=== PATIENT | female | born 1990 | race Caucasian/White ===

== ENCOUNTER 2018-04-25 17:40 | Observation (INO) ==
--- NOTE | 2018-04-25 18:25 | Emergency Department Note ---
Disposition Clinical Impression: Hypocalcemia Disposition: Admitted As Inpatient Condition: Fair Recheck wound or abnormal lab - General Chief Complaint: ED Recheck/Abnormal Lab/Rx Stated Complaint: low calcium Time Seen by Provider: 04/25/18 17:47 Nursing Notes Reviewed: Yes Vital Signs Reviewed: Yes - History of Present Illness HPI Narrative: Ms. Nolen, 27-year-old female, presents from home for evaluation of what she suspects is hypocalcemia. Patient has a history of complete thyroidectomy with a parathyroid autotransplant. She has been admitted for hypocalcemia previously and this feels very similar. She follows with [facility] , Dr. Castellano; last appointment with him is Monday. She notes that is, on Monday , she had Chvostek sign. In the last hour prior to arrival, she began having Trusseau sign sign at rest of her bilateral hands. Patient notes she should be on calcitriol. She self-discontinued approximately 6 months ago due to the high cost of the medication. ROS: Positive: As above Negative: Fever, chills, nausea, vomiting, chest pain, palpitations, dyspnea, diaphoresis, abdominal pain, diarrhea, constipation - Related Data Home Medications Medication Instructions Recorded Confirmed Levonorgestrel [Mirena] 52 mg IU ONCE 09/24/15 04/25/18 Levothyroxine [Synthroid] 150 mcg PO DAILY 07/03/16 04/25/18 Allergies Allergy/AdvReac Type Severity Reaction Status Date / Time No Known Allergies Allergy Verified 04/25/18 20:40 All systems ED: reviewed and negative except as stated. Review of Systems: As Per HPI Past Medical History - Past Medical History Medical history: Reports: non-contributory, cancer, thyroid disease Surgical history: Reports: cholecystectomy, other (Thyroid resection) Psychiatric history: Reports: anxiety, depression, other AFTER SCHOOL CAREGIVER history: Reports: no AFTER SCHOOL CAREGIVER history - Social History Smoking Status: Never smoker Smokeless Tobacco Status: No Alcohol use: Reports: none Drug use: Reports: none Physical Exam Vital Signs Reviewed General: Patient is alert, oriented, and in mild distress from her Trousseau sign. Head: atraumatic, normocephalic Eye: normal appearance, PERRL, EOMI, no scleral icterus, no conjunctival injection ENT: mucous membranes moist, normal external ear exam Neck: normal inspection, trachea midline, full ROM Chest: normal inspection, symmetric chest rise Respiratory: Good respiratory effort. Bilateral breath sounds are clear without wheezing, crackles, or rhonchi. Cardiovascular: Regular rate and rhythm. No clicks, rubs, gallops, or murmors. Normal heart sounds. Abdomen: Bowel sounds present normoactive x-4 quadrants. Abdomen is soft, nondistended, and nontender. No guarding or rebound. No organomegaly noted. Musculoskeletal: Spontaneously moving all extremities. Strength 5/5 and equal in upper and lower extremities. Skin: warm, dry, intact. Neuro: Alert and oriented x4. Sensation light touch intact. (+) Chvostek. (+) Trousseau without compression of BP cuff. Psych: Patient's affect is appropriate for situation. Course Course Narrative: Patient is pleasant and cooperative. Chart check shows history of admission for hypocalcemia; she had Chvostek and Trousseau at that time as well. EKG dated 04/25/18 at 18:14 interpreted as sinus rhythm with a rate of 94. OK 138, QRS 106, QTC 439. Normal axis. Nonspecific ST-T changes. Compared to previous dated 07/02/16 showing no acute ischemic changes or comparison. Patient was given 1 amp calcium gluconate and 100 mL of normal saline given over 20-30 minutes. Her symptoms did improve but did not resolve; she had tremors and slight Trousseau sign. I attempted multiple times to speak with her welder journeyman at [facility] without success. I discussed in detail the appropriate treatment for such severe symptomatic hypocalcemia which necessitates multiple calcium checks and likely multiple calcium infusions. Hesitantly, she agrees to admission for continued evaluation and management. I discussed with the patient the seriousness of her symptoms in the cause very likely directly related to her noncompliance of her calcium supplement. Or minor if this is happened previously for very similar reasons. She appears to understand the causality. I believe that, patient was able to be supplemented with a financially cheaper calcium supplement she would very likely be compliant. I discussed the patient with the admitting hospitalist, Dr. Owens, who agrees to accept the patient for continued evaluation and management of symptomatically hypocalcemia. He requests IV magnesium at this time which I will provide emergency department. Vital Signs Temperature 98.2 F 04/25/18 17:42 Pulse Rate 95 04/25/18 17:42 Respiratory Rate 16 04/25/18 17:42 Blood Pressure 145/89 04/25/18 17:42 O2 Sat by Pulse Oximetry 99 04/25/18 17:42 Temperature 98.2 F 04/25/18 17:42 Pulse Rate 82 04/25/18 21:13 Respiratory Rate 16 04/25/18 22:29 Blood Pressure 118/75 04/25/18 22:29 O2 Sat by Pulse Oximetry 99 04/25/18 21:13 Oxygen Delivery Oxygen Delivery Room Air Recheck wound or abnormal lab - Lab Data Result diagrams: 04/25/18 18:14 04/25/18 18:14 Lab Results 04/25/18 04/25/18 04/25/18 Range/Units 18:14 18:14 18:28 WBC 7.8 (4.3-11.1) K/mcL RBC 4.24 (3.82-4.97) M/mcL Hgb 12.9 (11.5-15.4) g/dL Hct 38.2 (35.3-44.9) % MCV 90.1 (83.0-100.0) fL MCH 30.4 (28.0-33.3) pg MCHC 33.8 (31.6-35.5) g/dL RDW 12.7 (11.5-14.5) % Plt Count 300 (140-400) K/mcL MPV 8.7 L (9.4-12.4) fL Immature Gran % 0.3 (0-4) % Seg Neutrophils % 64.5 % Lymphocytes % 25.9 % Monocytes % 7.0 % Eosinophils % 1.8 % Basophils % 0.5 % Neutrophils # 5.0 (1.6-8.9) K/mcL Lymphocytes # 2.0 (0.6-4.6) K/mcL Monocytes # 0.6 (0.0-1.3) K/mcL Eosinophils # 0.1 (0.0-0.6) K/mcL Basophils # 0.0 (0.0-0.2) K/mcL Sodium 140 (136-145) mEq/L Potassium 3.5 (3.5-5.1) mEq/L Chloride 103 (98-107) mEq/L Carbon Dioxide 25 (23-29) mEq/L BUN 9 (6-20) mg/dL Creatinine 0.85 (0.60-1.20) mg/dL Est GFR ( Amer) > 60 (> 60) Est GFR (Non-Af Amer) > 60 (> 60) BUN/Creatinine Ratio 11 (6-26) Glucose 115 H (70-105) mg/dL Calculated Osmolality 290 (280-300) Calcium 7.0 L (8.6-10.3) mg/dL Venous Ioniz Calcium 0.81 L (1.15-1.35) mmol/L Phosphorus 4.0 (2.7-4.5) mg/dL Magnesium 1.7 (1.6-2.6) mg/dL TSH 7.760 H (0.340-5.600) mcIU/mL
[2018-04-25 18:29] LABS: Basophils % 0.5 %; Eosinophils # 0.1 K/mcL (0.0-0.6); Eosinophils % 1.8 %; Hematocrit 38.2 % (35.3-44.9); Hemoglobin 12.9 g/dL (11.5-15.4); Immature Granulocytes % 0.3 % (0-4); Lymphocytes % 25.9 %; Mean Corpuscular HGB Conc 33.8 g/dL (31.6-35.5); Mean Corpuscular Hemoglobin 30.4 pg (28.0-33.3); Mean Corpuscular Volume 90.1 fL (83.0-100.0); Mean Platelet Volume 8.7 fL (9.4-12.4); Monocytes # 0.6 K/mcL (0.0-1.3); Platelet Count 300 K/mcL (140-400); Red Blood Count 4.24 M/mcL (3.82-4.97); Red Cell Distribution Width 12.7 % (11.5-14.5); Segmented Neutrophils % 64.5 %
[2018-04-25 18:30] LABS: VBG Ionized Calcium 0.81 mmol/L (1.15-1.35)
[2018-04-25 18:53] LABS: BUN/Creatinine Ratio 11 (6-26); Blood Urea Nitrogen 9 mg/dL (6-20); Carbon Dioxide 25 mEq/L (23-29); Chloride 103 mEq/L (98-107); Glucose 115 mg/dL (70-105); Magnesium 1.7 mg/dL (1.6-2.6); Osmolality,Calculated 290 (280-300); Potassium 3.5 mEq/L (3.5-5.1); Sodium 140 mEq/L (136-145); eGFR For African Americans > 60 (> 60); eGFR For Non-African Americans > 60 (> 60)
--- NOTE | 2018-04-25 21:26 | Emergency Department Note ---
Disposition Clinical Impression: Hypocalcemia Disposition: Admitted As Inpatient Condition: Fair General Adult HPI - General Chief complaint: ED Recheck/Abnormal Lab/Rx Stated complaint: low calcium Time Seen by Provider: 04/25/18 17:47 - History of Present Illness Pain Scale: 0 - Related Data Home Medications Medication Instructions Recorded Confirmed Levonorgestrel [Mirena] 52 mg IU ONCE 09/24/15 04/25/18 Levothyroxine [Synthroid] 150 mcg PO DAILY 07/03/16 04/25/18 Previous Rx's Medication Instructions Recorded Calcitriol [Rocaltrol] 0.25 mcg PO BID 30 Days #60 capsule 04/26/18 Allergies Allergy/AdvReac Type Severity Reaction Status Date / Time No Known Allergies Allergy Verified 04/25/18 20:40 Past Medical History - Past Medical History Medical history: Reports: non-contributory, cancer, thyroid disease Surgical history: Reports: cholecystectomy, other (Thyroid resection) Psychiatric history: Reports: anxiety, depression, other HEAD AUTOMATIC SAWYER history: Reports: no HEAD AUTOMATIC SAWYER history - Social History Smoking Status: Never smoker Smokeless Tobacco Status: No Alcohol use: Reports: none Drug use: Reports: none Course Vital Signs Temperature 98.2 F 04/25/18 17:42 Pulse Rate 95 04/25/18 17:42 Respiratory Rate 16 04/25/18 17:42 Blood Pressure 145/89 04/25/18 17:42 O2 Sat by Pulse Oximetry 99 04/25/18 17:42 Temperature 99.6 F 04/26/18 11:30 Pulse Rate 69 04/26/18 11:30 Respiratory Rate 18 04/26/18 11:30 Blood Pressure 109/72 04/26/18 11:30 O2 Sat by Pulse Oximetry 98 04/26/18 11:30 Oxygen Delivery Oxygen Delivery Room Air Medical Decision Making - Lab Data Result diagrams: 04/25/18 18:14 04/26/18 03:01 Lab Results 04/25/18 04/25/18 04/25/18 Range/Units 18:14 18:14 18:28 WBC 7.8 (4.3-11.1) K/mcL RBC 4.24 (3.82-4.97) M/mcL Hgb 12.9 (11.5-15.4) g/dL Hct 38.2 (35.3-44.9) % MCV 90.1 (83.0-100.0) fL MCH 30.4 (28.0-33.3) pg MCHC 33.8 (31.6-35.5) g/dL RDW 12.7 (11.5-14.5) % Plt Count 300 (140-400) K/mcL MPV 8.7 L (9.4-12.4) fL Immature Gran % 0.3 (0-4) % Seg Neutrophils % 64.5 % Lymphocytes % 25.9 % Monocytes % 7.0 % Eosinophils % 1.8 % Basophils % 0.5 % Neutrophils # 5.0 (1.6-8.9) K/mcL Lymphocytes # 2.0 (0.6-4.6) K/mcL Monocytes # 0.6 (0.0-1.3) K/mcL Eosinophils # 0.1 (0.0-0.6) K/mcL Basophils # 0.0 (0.0-0.2) K/mcL Sodium 140 (136-145) mEq/L Potassium 3.5 (3.5-5.1) mEq/L Chloride 103 (98-107) mEq/L Carbon Dioxide 25 (23-29) mEq/L BUN 9 (6-20) mg/dL Creatinine 0.85 (0.60-1.20) mg/dL Est GFR ( Amer) > 60 (> 60) Est GFR (Non-Af Amer) > 60 (> 60) BUN/Creatinine Ratio 11 (6-26) Glucose 115 H (70-105) mg/dL Calculated Osmolality 290 (280-300) Calcium 7.0 L (8.6-10.3) mg/dL Venous Ioniz Calcium 0.81 L (1.15-1.35) mmol/L Phosphorus 4.0 (2.7-4.5) mg/dL Magnesium 1.7 (1.6-2.6) mg/dL TSH 7.760 H (0.340-5.600) mcIU/mL Attestation Statement - Attestation Attestation: I examined this patient and my medical decision-making was reviewed with the Resident Physician, Dr. Rosenberg. I agree with the documented findings, disposition and treatment plan as described except to the extent set forth below. 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 Patient is supposed to be on calcium supplementation as an outpatient but she states that she has been noncompliant secondary to the high cost of the medicine. Patient reports she supposed to take calcitriol at home and she is been off that her some time. Patient had a regular 6 month lab check by her hose tender week ago in was told that her calcium was running very low. Patient since that time has developed some symptoms of hypocalcemia including jaw claudication carpopedal spasm. Patient came in for evaluation of low calcium. I agree with patient's physical exam findings as documented. Vital signs are stable she is in no acute distress. Patient with low calcium on labs. Patient was given IV calcium gluconate and 2 g magnesium replacement. Patient be admitted to the hospitalist service for further evaluation and management she remains hemodynamically stable at this time.
[2018-04-25] MEDS ORDERED: Naloxone 0.4 MG/ML INJ IVP PRN (21:48)
[2018-04-25] MEDS ORDERED: Acetaminophen 325 MG TABLET PO PRN (21:48)
--- NOTE | 2018-04-25 22:20 | Internal Med History&Physical ---
Date of Encounter: 04/25/18 Time of Encounter: 21:05 Internal Medicine - H&P: HPI Chief complaint: low calcium Admitted From: Emergency Dept Plans for Post Hospital Care: Home History of present illness: Ms. Nolen is a 27 year old female who presents to the ER tonight with low calcium and symptoms suggestive of low calcium. She started experiencing some tingling in her hands and contractures in her hands as well as a positive Chvostek sign in her jaw. She has a history of total thyroidectomy and parathyroid reimplantation. However, her parathyroid glands have failed. She follows with an armature winder helper repair in [place], [place]. She has been off of her calcitriol for about a year now and has not taken it due to excessive cost and lack of adequate insurance coverage. She has been taking calcium carbonate and drinking milk as recommended by her armature winder helper repair and has been able to maintain her calcium relatively steadily for the last several months. However, she has developed some hypocalcemia at certain times of her life, especially when she is having some emotional duress. She noted some increased symptoms the last 24 hours and therefore came to ER for evaluation where she was noted to be hypocalcemic. She was given some calcium gluconate IV in the ER and was admitted to hospitalist service. I asked the ER to give her a dose of magnesium sulfate IV as well. Upon my assessment of the patient in the ER, she is having some mild contractures of her hands, especially with a blood pressure cuff in her right arm. She also has a positive Chvostek sign in her jaw. She denies any fevers, cough, chills, nausea, vomiting, diarrhea, shortness of breath, or chest pain. She admits to noncompliance with calcitriol and states that she is unable to afford the medication. She does take her Synthroid replacement religiously, however. She states her armature winder helper repair is aware that she does not take calcitriol and that she takes calcium carbonate 1000 mg 4 times daily with milk and that usually helps regulate her calcium levels steadily. Past Med Surg Social Fam HX - Past Medical History Attestation: Yes The following information was validated with the patient. Source: patient, old records reviewed Medical history: cancer (thyroid), thyroid disease Additional medical history: thyroidectomy Psychiatric history: anxiety, depression - Past Surgical History Surgical History: cholecystectomy, other (Thyroid resection) Additional surgical history: thyroidectomy Oct 2015 - Social History Smoking Status: Never smoker Smokeless Tobacco Status: No Alcohol use: none Drug use: none Current living situation: Home, With Family Activity Level: Independent ambulation Recent Out of Country Travel Within the Last 8 Weeks: No - Family History Mother Living Status: Still Living Hx Family Cardiac Disorders: Yes (orthostatic hypotensive) Father Living Status: Still Living Hx Family GI Disorders: Yes (pre cancerous) Internal Medicine - H&P: Meds Levonorgestrel [Mirena] 52 mg IU ONCE 09/24/15 [History] Levothyroxine [Synthroid] 150 mcg PO DAILY 07/03/16 [History] 3 Allergy/AdvReac Type Severity Reaction Status Date / Time No Known Allergies Allergy Verified 04/25/18 20:40 - Constitutional Constitutional: no chills, no fever(s), no night sweats, no weakness - EENT Eyes: no blurry vision, no change in vision Ears: no tinnitus Nose, mouth and throat: no nasal congestion, no sore throat - Cardiovascular Cardiovascular ROS IM: no chest pain, no dyspnea, no irregular heart rhythm, no lightheadedness, no palpitations, no syncope - Respiratory Respiratory: no cough, no dyspnea - Gastrointestinal Gastrointestinal: no abdominal pain, no constipation, no diarrhea, no nausea, no vomiting - Genitourinary Genitourinary: no dysuria, no flank pain, no hematuria - Musculoskeletal Musculoskeletal ROS IM: no arthralgias, no back pain - Integumentary Integumentary IM: no rash - Neurological Neurological ROS: tingling, no focal weakness, no frequent falls, no headache(s) - Psychiatric Psychiatric: no anxiety, no depression - Endocrine Endocrine IM: no polydipsia, no polyuria - Allergic/Immunologic Allergic/Immunologic: no wheezing - Constitutional Vitals: Temp Pulse Resp BP Pulse Ox 98.2 F 82 18 135/78 99 04/25/18 17:42 04/25/18 21:13 04/25/18 21:13 04/25/18 21:13 04/25/18 21:13 General appearance: Present: cooperative, A&O X 3, pleasant, no acute distress, answers questions appropriately - Head Head exam: Present: atraumatic, normal inspection - Eye Eye exam: Present: EOMI, normal appearance, PERRL. Absent: scleral icterus Pupils: Present: normal accommodation - ENT ENT exam: Present: mucous membranes dry, normal exam, normal oropharynx - Neck Neck exam general surgery: Present: full ROM, supple. Absent: lymphadenopathy, tenderness, nuchal rigidity, thyromegaly Additional comments: healed thyroid surgical scar - Respiratory Respiratory exam: Present: CTAB. Absent: chest wall tenderness, rales, respiratory distress, rhonchi, wheezes - Cardiovascular Cardiovascular exam: Present: RRR, +S1, +S2. Absent: diastolic murmur, systolic murmur - GI/Abdominal GI/Abdominal exam: Present: normal bowel sounds, soft. Absent: hepatomegaly, mass, splenomegaly, tenderness - Extremities Exam Extremities exam: Present: full ROM, normal capillary refill, warm, radial pulses palpable and symmetrical. Absent: calf tenderness - Back Exam Back exam: Present: normal inspection. Absent: CVA tenderness (L), CVA tenderness (R) - Neurological Exam Neurological exam: Present: alert, CN II-XII intact, oriented X3 Additional comments: + Chvostek sign; tingling in her fingers - Psychiatric Psychiatric exam: Present: normal affect, normal mood - Skin Skin exam: Absent: rash Internal Med - H&P Results - Labs CBC & Chem 7: 04/25/18 18:14 04/25/18 18:14 Labs: Short CBC 04/25/18 Range/Units 18:14 WBC 7.8 (4.3-11.1) K/mcL Hgb 12.9 (11.5-15.4) g/dL Hct 38.2 (35.3-44.9) % Plt Count 300 (140-400) K/mcL Neutrophils # 5.0 (1.6-8.9) K/mcL BMP 04/25/18 18:14 Sodium 140 Potassium 3.5 Chloride 103 Carbon Dioxide 25 BUN 9 Creatinine 0.85 Glucose 115 H Calcium 7.0 L - EKG Data -: EKG Interpreted by Myself EKG shows normal: sinus rhythm Rate: normal - EKG Data Prior EKG available for review: no - Assessment and plan (1) Hypocalcemia Current Visit: Yes Status: Acute Assessment and plan: 1. Will treat with oral calcium as per home dosing after she received IV calcium and Magnesium in ER. 2. Will monitor ionized calcium levels and BMP Q4H until stabilized. 3. Will repeat magnesium level in the morning. 4. Discussed with patient on the need to follow closely with her armature winder helper repair and consider resuming Calcitriol at his discretion. (2) Hypothyroid Current Visit: Yes Status: Chronic Assessment and plan: 1. Resume home dose of Synthroid. 2. Will check Free T4 level with next lab draw. Qualifiers: Hypothyroidism type: postoperative Qualified Code(s): E89.0 - Postprocedural hypothyroidism (3) DVT prophylaxis Current Visit: Yes Status: Acute Assessment and plan: 1. Heparin SQ.
[2018-04-25 23:40] LABS: BUN/Creatinine Ratio 12 (6-26); Blood Urea Nitrogen 10 mg/dL (6-20); Calcium 7.4 mg/dL (8.6-10.3); Carbon Dioxide 26 mEq/L (23-29); Chloride 103 mEq/L (98-107); Glucose 106 mg/dL (70-105); Osmolality,Calculated 289 (280-300); Potassium 3.6 mEq/L (3.5-5.1); Sodium 140 mEq/L (136-145); eGFR For African Americans > 60 (> 60); eGFR For Non-African Americans > 60 (> 60)
[2018-04-26 03:43] LABS: BUN/Creatinine Ratio 16 (6-26); Blood Urea Nitrogen 12 mg/dL (6-20); Calcium 7.2 mg/dL (8.6-10.3); Carbon Dioxide 27 mEq/L (23-29); Chloride 104 mEq/L (98-107); Glucose 101 mg/dL (70-105); Osmolality,Calculated 288 (280-300); Potassium 3.4 mEq/L (3.5-5.1); Sodium 139 mEq/L (136-145); eGFR For African Americans > 60 (> 60); eGFR For Non-African Americans > 60 (> 60)
[2018-04-26 03:46] LABS: Alanine Aminotransferase 16 Units/L (7-52); Albumin/Globulin Ratio 1.3 (1.1-2.2); Alkaline Phosphatase 94 Units/L (34-104); Aspartate Amino Transferase 14 Units/L (13-39); BUN/Creatinine Ratio 14 (6-26); Bilirubin,Total 0.4 mg/dL (0.3-1.0); Blood Urea Nitrogen 11 mg/dL (6-20); Calcium 7.1 mg/dL (8.6-10.3); Carbon Dioxide 26 mEq/L (23-29); Chloride 101 mEq/L (98-107); Globulin 3.1 g/dL (2.4-3.5); Glucose 102 mg/dL (70-105); Magnesium 2.2 mg/dL (1.6-2.6); Osmolality,Calculated 296 (280-300); Phosphorous 4.5 mg/dL (2.7-4.5); Potassium 3.5 mEq/L (3.5-5.1); Sodium 143 mEq/L (136-145); Total Protein 7.1 g/dL (6.4-8.9); eGFR For African Americans > 60 (> 60); eGFR For Non-African Americans > 60 (> 60)
--- NOTE | 2018-04-26 08:33 | Internal Med Progress Note ---
Date of Encounter: 04/26/18 Time of Encounter: 08:30 - Assessment and plan (1) Hypocalcemia Current Visit: Yes Status: Acute Assessment and plan: Presents with s/sx of hypocalcemia Presented with positive Chvostek's sign, contractures of bilateral hands, numbness/tingling, and tetany symptoms are improving. Patient reports that she is only experiencing mild numbness/tingling in face. No longer having contractures, or tetany Has received 1 g IV calcium and is currently on 4 times a day calcium carbonate Patient was previously taking Calcitrol reports that due to insurance issues she is unable to afford it any longer; vice president sales aware and following Repeat labs continue to show hypocalcemia with a calcium of 7.1 and ionized calcium of 0.90 Serum Mg 2.2 and Phos 4.5 -Give 1gm IV calcium now -Goal serum calcium 8-8.5 -Check vitamin D;replace as necessary - Discussed with patient on the need to follow closely with her vice president sales and consider resuming Calcitriol at his discretion. (2) Hypothyroid Current Visit: Yes Status: Chronic Assessment and plan: Iatrogenic hypothyroidism 2/2 thyroid and parathyroid removal with cancer treatment Failed parathyroid reimplantation TSH and free T4 show subtherapeutic hypothyroidism Follows with endocrinology in [facility]; medication adjustments to be made by endocrinology f/u Continue current synthroid dose Qualifiers: Hypothyroidism type: postoperative Qualified Code(s): E89.0 - Postprocedural hypothyroidism (3) DVT prophylaxis Current Visit: Yes Status: Acute Assessment and plan: SQ heparin - Time Spent With Patient Total time spent is greater than 50% in coordination of care (as documented) at patient's floor/unit and/or counseling patient: 25 - 35 minutes - Subjective Interval history: Patient seen and examined at the bedside today. No acute changes overnight. Denies any contractures, cramps, extremity numbness and tingling. Continues to endorse mild facial numbness/tingling. - Constitutional Vitals: Temp Pulse Resp BP Pulse Ox 99.1 F 72 18 105/67 97 04/26/18 07:41 04/26/18 07:41 04/26/18 07:41 04/26/18 07:41 04/26/18 07:41 General appearance: Present: cooperative, A&O X 3, pleasant, no acute distress, answers questions appropriately - Head Head exam: Present: atraumatic, normocephalic - Eye Eye exam: Present: PERRL, conjuntiva pink, sclera anicteric Pupils: Present: PERRL - Neck Neck exam general surgery: Present: supple, trachea midline. Absent: lymphadenopathy - Respiratory Respiratory exam: Present: CTAB. Absent: accessory muscle use, rales, rhonchi, wheezes - Cardiovascular Cardiovascular exam: Present: RRR, +S1, +S2. Absent: diastolic murmur, gallop, rubs, systolic murmur - GI/Abdominal GI/Abdominal exam: Present: normal bowel sounds, soft, no peritoneal signs. Absent: distended, tenderness - Extremities Exam Extremities exam: Present: warm, radial pulses palpable and symmetrical. Absent : calf tenderness, cyanotic, pedal edema - Neurological Exam Neurological exam: Present: CN II-XII intact, oriented X3, no focal deficits. Absent: pronater drift, facial droop, speech deficit Additional comments: Negative for tetany and negative for hyperreflexia. No Chvosteks signs - Skin Skin exam: Present: dry, intact Internal Medicine: Result - Labs CBC & Chem 7: 04/25/18 18:14 04/26/18 03:01 Labs: BMP 04/25/18 04/26/18 04/26/18 23:03 03:01 03:01 Sodium 140 139 143 Potassium 3.6 3.4 L 3.5 Chloride 103 104 101 Carbon Dioxide 26 27 26 BUN 10 12 11 Creatinine 0.81 0.77 0.76 Glucose 106 H 101 102 Calcium 7.4 L 7.2 L 7.1 L Liver Function 04/26/18 Range/Units 03:01 Total Bilirubin 0.4 (0.3-1.0) mg/dL AST 14 (13-39) Units/L ALT 16 (7-52) Units/L Alkaline Phosphatase 94 (34-104) Units/L Albumin 4.0 (3.5-5.7) g/dL Consult Discharge Plan - Plan Referrals: Tara Wyatt, CHRISTO [Primary Care Provider] -
[2018-04-26] MEDS ORDERED: *HR* Heparin 5,000 UNIT/ML VIAL SQ SCH (09:00)
[2018-04-26] MEDS ORDERED: Cholecalciferol (D-3) 1,000 UNIT TABLET PO SCH (09:00)
[2018-04-26 10:56] LABS: VBG Ionized Calcium 0.92 mmol/L (1.15-1.35)
[2018-04-26 11:31] VITALS: BP 109/72
--- NOTE | 2018-04-26 13:31 | Discharge Summary ---
- NOTES TO OUTPATIENT PROVIDER Notes to Outpatient Provider: Patient admitted for hypocalcemia. 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 Follows with endocrinology in [facility]. S/sx have subsided and patient has improved at time of d/c. Instructed to follow-up with PCP within 1 week of discharge. Also, instructed to follow up with bridge gang worker within 1-2 weeks of discharge. Orders not resulted at time of discharge: Pending orders 04/27/18 04:00 Basic Metabolic Panel AM 0400 Magnesium AM 0400 Date of Encounter: 04/26/18 Time of Encounter: 13:29 - Discharge Diagnosis (1) Hypocalcemia Priority: Primary Status: Acute Assessment and Plan: Presents with s/sx of hypocalcemia Presented with positive Chvostek's sign, contractures of bilateral hands, numbness/tingling, and tetany symptoms are improving. Patient reports that she is only experiencing mild numbness/tingling in face. No longer having contractures, or tetany Has received 1 g IV calcium and is currently on 4 times a day calcium carbonate Patient was previously taking Calcitrol reports that due to insurance issues she is unable to afford it any longer; bridge gang worker aware and following Repeat labs continue to show hypocalcemia with a calcium of 7.1 and ionized calcium of 0.90 Serum Mg 2.2 and Phos 4.5 additional 1 g IV calcium Symptoms have resolved Spoke with patient's bridge gang worker who recommends treating patient based on symptoms and not serum calcium levels given her condition Patient has a follow-up with bridge gang worker in 1-2 weeks With resolution of symptoms patient is medically stable for discharge. Instructed to follow-up with PCP within 1 week of discharge and follow-up with endocrinology in 1-2 weeks. She denies any further questions or concerns. Patient verbalized understanding. She will be sent home with a new prescription for Calcitrol. She has been given prescription coupons to help afford her medications and increase compliance. (2) Hypothyroid Priority: Secondary Status: Chronic Assessment and Plan: Iatrogenic hypothyroidism 2/2 thyroid and parathyroid removal with cancer treatment Failed parathyroid reimplantation TSH and free T4 show subtherapeutic hypothyroidism Follows with endocrinology in [facility]; medication adjustments to be made by endocrinology f/u Continue current synthroid dose Qualifiers: Hypothyroidism type: postoperative Qualified Code(s): E89.0 - Postprocedural hypothyroidism Hospital course: Ms. Nolen is a 27 year old female Assessment and plan for hospital course Discharge discussed with: patient, nurse - Time Spent with Patient Total time spent providing and/or coordinating discharge services: Less than 30 minutes - Discharge Medications Home Medications: Levonorgestrel [Mirena] 52 mg IU ONCE 09/24/15 [History] Levothyroxine [Synthroid] 150 mcg PO DAILY 07/03/16 [History] Calcitriol [Rocaltrol] 0.25 mcg PO BID 30 Days #60 capsule 04/26/18 [Rx] Allergies/Adverse Reactions: 3 Allergy/AdvReac Type Severity Reaction Status Date / Time No Known Allergies Allergy Verified 04/25/18 20:40 Date of admission: 04/25/18 22:24 Primary care physician: Tara Wyatt CNP Discharging clinician: Raymond Gann Anticipated date of discharge: 04/26/18 - Constitutional Vitals: Temp Pulse Resp BP Pulse Ox 99.6 F 69 18 109/72 98 04/26/18 11:30 04/26/18 11:30 04/26/18 11:30 04/26/18 11:30 04/26/18 11:30 General appearance: Present: cooperative, A&O X 3, pleasant, no acute distress, answers questions appropriately - Head Head exam: Present: atraumatic, normocephalic - Eye Eye exam: Present: PERRL, conjuntiva pink, sclera anicteric Pupils: Present: PERRL - Neck Neck exam general surgery: Present: supple, trachea midline. Absent: lymphadenopathy - Respiratory Respiratory exam: Present: CTAB. Absent: accessory muscle use, rales, rhonchi, wheezes - Cardiovascular Cardiovascular exam: Present: RRR, +S1, +S2. Absent: diastolic murmur, gallop, rubs, systolic murmur - GI/Abdominal GI/Abdominal exam: Present: normal bowel sounds, soft, no peritoneal signs. Absent: distended, tenderness - Extremities Exam Extremities exam: Present: warm, radial pulses palpable and symmetrical. Absent : calf tenderness, cyanotic, pedal edema - Neurological Exam Neurological exam: Present: CN II-XII intact, oriented X3, no focal deficits. Absent: pronater drift, facial droop, speech deficit - Skin Skin exam: Present: dry, intact - Patient Status Disposition: Home, Self-Care Condition: Fair Functional capacity at discharge: independent ambulation Overall status at discharge: patient is back to baseline - Discharge Instructions Follow Up With: Tara Wyatt CNP [Primary Care Provider] - - Diet and Activity Activity: resume usual activities as tolerated Diet: advance to your usual diet
--- NOTE | 2018-04-29 20:39 | Electrocardiograph Report ---
[address] [address] Test Date: 2018-04-25 Pat Name: Lydia Nolen Department: 102 Room: 3B Gender: F Molder Wax Ball: Rosangela : 1990 Requested By: Efra Rosenberg Order Number: [id number] Reading MD: Stephen Lozano Measurements Intervals [place] Rate: 94 P: 49 AL: 138 QRS: 56 QRSD: 106 T: 68 QT: 387 QTc: 439 Interpretive Statements SINUS RHYTHM Electronically Signed On 04-29-2018 20:37:31 EDT by Stephen Lozano
== END 2018-04-26 15:19 | disposition home or self-care (01) ==
LOC: EMEROO 17:40 → 3BNU 17:40
PROVIDERS: ADMIT Family Medicine; ATTEND Family Medicine